=== PATIENT | male | born 1955 | race Two or more races ===

== ENCOUNTER 2019-01-24 03:01 | Emergency (ER) | payer OTHER, MEDICAID ==
[~2019-01-24] VITALS: Ht 172.7 cm; Wt 76.7 kg
[2019-01-24 03:55] LABS: Basophils # (auto) 0.1 uL; Basophils % (auto) 0.7 % (0.0-2.0); Eosinophils # (auto) 0.2 uL; Eosinophils % (auto) 2.2 % (0.0-7.0); Hematocrit 43.1 % (41.0-53.0); Hemoglobin 14.7 g/dL (13.5-17.5); Lymphocytes # (auto) 3.8 uL; Lymphocytes % (auto) 35.9 % (10.0-50.0); Mean Corpuscular Hemoglobin 32.3 pg (28.0-32.0); Mean Corpuscular Hgb Conc. 34.2 g/dL (32.0-36.0); Mean Corpuscular Volume 94.4 fL (80.0-100.0); Monocytes # (auto) 0.6 uL; Monocytes % (auto) 6.1 % (0.0-12.0); Neutrophils # (auto) 5.8 uL; Neutrophils % (auto) 55.1 % (37.0-80.0); Platelet Count (auto) 205 10^3/uL (140-450); Red Blood Cells 4.56 10^6/uL (4.5-5.90); Red Cell Distribution Width 13.8 % (11.8-14.3); White Blood Cell 10.5 10^3/uL (4.4-10.8)
[2019-01-24 04:14] LABS: Albumin 3.8 g/dL (3.4-5.0); BUN/Creatinine Ratio 20.5; Potassium 3.8 mmol/L (3.5-5.1)
[2019-01-24 04:19] LABS: Bilirubin, Total 0.5 mg/dL (0.2-1.0); Total Protein 7.6 g/dL (6.4-8.2)
[2019-01-24 09:44] VITALS: BP 150/80
== END 2019-01-24 09:48 | disposition home or self-care (01) ==
LOC: ER 03:05
DX: I10 Essential (primary) hypertension (principal); E78.5 Hyperlipidemia, unspecified; I48.91 Unspecified atrial fibrillation
CPT/HCPCS: 36415; 71046; 80053; 83735; 84443; 84484; 85025; 93005

== ENCOUNTER 2023-06-02 05:32 | Inpatient (IN) | payer OTHER, MEDICAID ==
[~2023-06-02] VITALS: Ht 162.6 cm; Wt 78.4 kg
[2023-06-02] VITALS (7 sets, daily range): BP systolic 143–168; BP diastolic 59–62; PULSE 43–55; RESP 12–18; TEMP 36.6; O2SAT 94–97
[2023-06-02] MEDS ORDERED: MORPHINE SULFATE 4 MG/ML SYR/VIAL IV ONE (06:00)
[2023-06-02] MEDS ORDERED: PANTOPRAZOLE 40 MG/10 ML VIAL INJ IV ONE ×2 (06:00→10:00)
[2023-06-02] MEDS ORDERED: ONDANSETRON HCL 4 MG/2 ML VIAL IV ONE (06:00)
[2023-06-02] MEDS ORDERED: hydrALAZINE HCL 20 MG/ML VL IV ONE (06:00)
[2023-06-02] MEDS ORDERED: IOHEXOL 350 MG/ML 100ML IJ ONE (06:04)
[2023-06-02 06:08] LABS: Basophils # (auto) 0.1 10 ^3/uL (0-0.2); Basophils % (auto) 0.6 % (0.0-2.0); Eosinophils # (auto) 0.1 10 ^3/uL (0-0.8); Eosinophils % (auto) 1.1 % (0.0-7.0); Hematocrit 35.4 % (41.0-53.0); Hemoglobin 11.7 g/dL (13.5-17.5); Lymphocytes # (auto) 4.3 10 ^3/uL (0.4-5.4); Lymphocytes % (auto) 35.3 % (10.0-50.0); Mean Corpuscular Hemoglobin 31.2 pg (28.0-32.0); Mean Corpuscular Volume 94.6 fL (80.0-100.0); Monocytes # (auto) 0.7 10 ^3/uL (0-1.3); Monocytes % (auto) 5.8 % (0.0-12.0); Neutrophils % (auto) 57.2 % (37.0-80.0); Red Blood Cells 3.74 10^6/uL (4.5-5.90); Red Cell Distribution Width 13.9 % (11.8-14.3); White Blood Cell 12.1 10^3/uL (4.4-10.8)
[2023-06-02 06:24] LABS: Alanine Aminotransferase 27 U/L (7-40); Albumin 4.2 g/dL (3.2-4.8); Alkaline Phosphatase 59 U/L (46-116); Anion Gap 7.1 (5-15); Aspartate Aminotransferase 43 U/L (13-40); BUN/Creatinine Ratio 15.6 (10.0-20.0); Blood Urea Nitrogen 20 mg/dL (9-23); Calcium 8.8 mg/dL (8.7-10.4); Carbon Dioxide 23.9 mmol/L (20-30); Chloride 108 mmol/L (98-107); Glucose 109 mg/dL (74-106); Potassium 3.7 mmol/L (3.5-5.1); Sodium 139 mmol/L (136-145)
[2023-06-02 06:25] LABS: Bilirubin, Total 0.6 mg/dL (0.2-1.0); INR 1.1 (0.9-1.15); Partial Thromboplastin Time 28.5 SEC (24.5-34.5); Prothrombin Time 11.5 sec (9.3-11.8); Total Protein 6.7 g/dL (5.7-8.2)
[2023-06-02 07:27] LABS: INR 1.13 (0.9-1.15); Prothrombin Time 11.8 sec (9.3-11.8)
[2023-06-02 08:19] LABS: COVID19 ANTIGEN SOFIA FIA NEGATIVE (NEGATIVE)
[2023-06-02] MEDS ORDERED: PIPERACILLIN-TAZO 4.5GM 100 ML IV ONE (08:30)
[2023-06-02] MEDS ORDERED: ONDANSETRON HCL 4 MG/2 ML VIAL IV PRN (09:30)
[2023-06-02] MEDS ORDERED: hydrALAZINE HCL 20 MG/ML VL IV PRN (09:30)
[2023-06-02] MEDS ORDERED: ACETAMINOPHEN 325 MG TAB PO PRN (09:30)
[2023-06-02] MEDS ORDERED: ENOXAPARIN SOD 100 MG/1 ML SYRINGE SC ONE (09:30)
[2023-06-02] MEDS ORDERED: DOCUSATE SOD 100 MG CAP PO PRN (09:30)
[2023-06-02] MEDS ORDERED: NITROGLYCERIN 0.4 MG SL TAB SL PRN (09:30)
[2023-06-02] MEDS ORDERED: MORPHINE SULFATE INJ 2 MG/ml SYRG IV PRN ×2 (09:30)
[2023-06-02] MEDS ORDERED: APIX5TAB PO (09:31)
[2023-06-02] MEDS ORDERED: ROSU10TA64 PO (09:31)
[2023-06-02] MEDS ORDERED: DRON400T PO (09:31)
[2023-06-02] MEDS ORDERED: LISINOPRIL 5 MG TAB PO SCH (10:00)
[2023-06-02 10:39] LABS: Triglycerides 116 mg/dL (< 150)
[2023-06-02 10:40] LABS: LDL Cholesterol 66 mg/dL (< 100)
[2023-06-02 10:41] LABS: Cholesterol 117 mg/dL (< 200); HDL Cholesterol 34 mg/dL (40-59)
[2023-06-02] MEDS: ASPirin 81 mg TAB PO SCH (11:29)
[2023-06-02] MEDS ORDERED: CLOPIDOGREL 300 MG TAB PO ONE (13:00)
[2023-06-02] MEDS: DRONEDARONE HCL 400 MG TAB PO SCH ×2 (13:05→22:00)
[2023-06-02] MEDS ORDERED: LOSA100T33 (13:23)
[2023-06-02] MEDS: PIPERACILLIN-TAZOB 3.375GM 100 ML IV SCH (17:59)
[2023-06-02] MEDS: ENOXAPARIN SOD 80 MG/0.8ML SYRINGE SC SCH (22:00)
[2023-06-02] MEDS: ATORVASTATIN 20 MG TAB PO SCH (22:40)
[2023-06-03] VITALS (11 sets, daily range): BP systolic 85–152; BP diastolic 47–67; PULSE 44–58; RESP 12–18; TEMP 36.8; O2SAT 96–98
[2023-06-03] MEDS: PIPERACILLIN-TAZOB 3.375GM 100 ML IV SCH ×2 (00:32→08:58)
[2023-06-03 06:03] LABS: Basophils # (auto) 0.1 10 ^3/uL (0-0.2); Basophils % (auto) 0.7 % (0.0-2.0); Eosinophils # (auto) 0.3 10 ^3/uL (0-0.8); Eosinophils % (auto) 2.9 % (0.0-7.0); Hemoglobin 11.6 g/dL (13.5-17.5); Lymphocytes # (auto) 3.3 10 ^3/uL (0.4-5.4); Lymphocytes % (auto) 32.7 % (10.0-50.0); Mean Corpuscular Hemoglobin 30.4 pg (28.0-32.0); Mean Corpuscular Hgb Conc. 32.2 g/dL (32.0-36.0); Mean Corpuscular Volume 94.6 fL (80.0-100.0); Monocytes # (auto) 0.7 10 ^3/uL (0-1.3); Monocytes % (auto) 6.5 % (0.0-12.0); Neutrophils # (auto) 5.8 10 ^3/uL (1.6-8.6); Neutrophils % (auto) 57.2 % (37.0-80.0); Red Blood Cells 3.81 10^6/uL (4.5-5.90); White Blood Cell 10.2 10^3/uL (4.4-10.8)
[2023-06-03 06:27] LABS: Alanine Aminotransferase 21 U/L (7-40); Albumin 3.9 g/dL (3.2-4.8); Alkaline Phosphatase 58 U/L (46-116); Anion Gap 8.1 (5-15); Aspartate Aminotransferase 31 U/L (13-40); BUN/Creatinine Ratio 11.4 (10.0-20.0); Bilirubin, Total 1.1 mg/dL (0.2-1.0); Blood Urea Nitrogen 14 mg/dL (9-23); Calcium 8.6 mg/dL (8.7-10.4); Carbon Dioxide 22.9 mmol/L (20-30); Chloride 108 mmol/L (98-107); Glucose 78 mg/dL (74-106); Lipase 54 U/L (12-53); Potassium 3.7 mmol/L (3.5-5.1); Sodium 139 mmol/L (136-145); Total Protein 6.2 g/dL (5.7-8.2)
[2023-06-03] MEDS: PANTOPRAZOLE 40 MG/10 ML VIAL INJ IV SCH (09:55)
[2023-06-03] MEDS: ASPirin 81 mg TAB PO SCH ×2 (09:55→16:45)
[2023-06-03] MEDS: LOSARTAN POTASSIUM 50 MG TAB PO SCH ×2 (09:56→16:46)
[2023-06-03] MEDS: ENOXAPARIN SOD 80 MG/0.8ML SYRINGE SC SCH (09:56)
[2023-06-03] MEDS: DRONEDARONE HCL 400 MG TAB PO SCH ×2 (09:56→21:46)
[2023-06-03] MEDS: CLOPIDOGREL BISULFATE 75 MG TAB PO SCH ×2 (09:56→16:46)
[2023-06-03] MEDS ORDERED: IODIXANOL 320MG/ML 100ML BTL IV ONE (10:47)
[2023-06-03] MEDS ORDERED: LIDOCAINE 2%HCL (LOCAL ANESTH.) INJ 20ML MDV ONE (10:47)
[2023-06-03] MEDS ORDERED: VERAPAMIL 2.5MG/ML INJ 2ML VIAL IV ONE (10:54)
[2023-06-03] MEDS ORDERED: ANGIOMAX 250 MG VIAL IV ONE (10:54)
[2023-06-03] MEDS ORDERED: fentaNYL CITRATE 100 MCG/2 ML VL ONE (10:55)
[2023-06-03] MEDS ORDERED: MIDAZOLAM HCL 2MG/2ML 2ml VIAL (1mg/ml) ONE (10:55)
[2023-06-03] MEDS ORDERED: HEPARIN SODIUM (PORCINE) 5000 UNITS/ML 1ML VIAL ONE (10:55)
[2023-06-03] MEDS ORDERED: SODIUM CHL 0.9% 0 ML ONE (10:55)
[2023-06-03] MEDS ORDERED: cefTRIAXone 1GM/50ML D5W 50 ML IV ONE (12:30)
[2023-06-03] MEDS ORDERED: TEMAZEPAM 15 MG CAP PO PRN (13:15)
[2023-06-03] MEDS ORDERED: NICOTINE 21MG/24 HR TOPICAL PATCH TD ONE (13:15)
[2023-06-03] MEDS: metroNIDAZOLE 500MG/100ML 100 ML IV SCH ×2 (14:00→21:35)
[2023-06-03] MEDS: ATORVASTATIN 20 MG TAB PO SCH (21:35)
[2023-06-04 05:00] VITALS: BP 146/69; PULSE 51; RESP 19; TEMP 98.1; O2SAT 98
[2023-06-04] MEDS: metroNIDAZOLE 500MG/100ML 100 ML IV SCH (05:40)
[2023-06-04 07:34] LABS: Anion Gap 8.2 (5-15); Carbon Dioxide 22.8 mmol/L (20-30); Chloride 108 mmol/L (98-107); Potassium 4.1 mmol/L (3.5-5.1); Sodium 139 mmol/L (136-145)
[2023-06-04 07:35] LABS: Calcium 8.4 mg/dL (8.5-10.1)
[2023-06-04 07:40] LABS: Blood Urea Nitrogen 17 mg/dL (9-23); Glucose 88 mg/dL (74-106)
[2023-06-04 07:43] LABS: Basophils # (auto) 0.1 10 ^3/uL (0-0.2); Basophils % (auto) 0.9 % (0.0-2.0); Eosinophils # (auto) 0.3 10 ^3/uL (0-0.8); Eosinophils % (auto) 3.5 % (0.0-7.0); Hematocrit 32.9 % (41.0-53.0); Hemoglobin 11.2 g/dL (13.5-17.5); Lymphocytes # (auto) 2.7 10 ^3/uL (0.4-5.4); Lymphocytes % (auto) 28.2 % (10.0-50.0); Mean Corpuscular Hemoglobin 31.9 pg (28.0-32.0); Mean Corpuscular Hgb Conc. 34.1 g/dL (32.0-36.0); Mean Corpuscular Volume 93.5 fL (80.0-100.0); Monocytes # (auto) 0.8 10 ^3/uL (0-1.3); Monocytes % (auto) 8.2 % (0.0-12.0); Neutrophils # (auto) 5.6 10 ^3/uL (1.6-8.6); Neutrophils % (auto) 59.2 % (37.0-80.0); Red Blood Cells 3.51 10^6/uL (4.5-5.90); Red Cell Distribution Width 13.7 % (11.8-14.3); White Blood Cell 9.5 10^3/uL (4.4-10.8)
[2023-06-04 07:44] LABS: BUN/Creatinine Ratio 15.3 (10.0-20.0)
[2023-06-04 08:00] VITALS: PULSE 43; PULSE 52; RESP 18; O2SAT 98
[2023-06-04 08:35] VITALS: BP 145/73; PULSE 47; RESP 16; TEMP 97.7; O2SAT 100
[2023-06-04] MEDS: PANTOPRAZOLE 40 MG/10 ML VIAL INJ IV SCH (08:56)
[2023-06-04] MEDS ORDERED: cefTRIAXone 1GM/50ML D5W 50 ML IV SCH (09:00)
[2023-06-04] MEDS: DRONEDARONE HCL 400 MG TAB PO SCH (09:03)
[2023-06-04] MEDS ORDERED: NICOTINE 21MG/24 HR TOPICAL PATCH TD SCH (10:00)
[2023-06-04 12:35] VITALS: BP 136/66; PULSE 54; RESP 18; TEMP 98.2; O2SAT 100
[2023-06-04] MEDS ORDERED: AMLO1TAB23 PO (14:14)
== END 2023-06-04 15:00 | disposition home or self-care (01) | DRG 280 ==
LOC: ER 05:32 → EDBD 05:32 → TELE 09:28 → TELE-EAST 17:23
PROVIDERS: ADMIT Internal Medicine
PROC: B211YZZ Fluoroscopy of Multiple Coronary Arteries using Other Contrast (ICD-10-PCS; principal; 2023-06-03)
DX: I21.4 Non-ST elevation (NSTEMI) myocardial infarction (principal); I50.31 Acute diastolic (congestive) heart failure; I16.1 Hypertensive emergency; R00.1 Bradycardia, unspecified; E78.5 Hyperlipidemia, unspecified; I48.91 Unspecified atrial fibrillation; F17.210 Nicotine dependence, cigarettes, uncomplicated; I11.0 Hypertensive heart disease with heart failure; R79.89 Other specified abnormal findings of blood chemistry; I73.9 Peripheral vascular disease, unspecified; E11.9 Type 2 diabetes mellitus without complications; I25.10 Atherosclerotic heart disease of native coronary artery without angina pectoris; Z20.822 Contact with and (suspected) exposure to COVID-19; Z82.3 Family history of stroke; Z79.82 Long term (current) use of aspirin; Z86.79 Personal history of other diseases of the circulatory system
CPT/HCPCS: 36415; 71045; 74177; 76705; 78226; 80048; 80053; 80061; 83036; 83690; 83735; 83880; 84443; 84484; 85025; 85379; 85610; 85730; 87426; 93005; 93306; 93454; 99152; 99291; C9113; G0378; J2250; J2543; J3490; Q9967

== ENCOUNTER 2023-08-13 03:14 | Inpatient (IN) | payer OTHER, MEDICAID ==
[~2023-08-13] VITALS: Ht 165.1 cm; Wt 73.3 kg
[~2023-08-13 03:14] MED LIST: AMLO1TAB23 PO; APIX5TAB PO; DRON400T PO; LOSA100T33; ROSU10TA64 PO
[2023-08-13] MEDS ORDERED: hydrALAZINE HCL 20 MG/ML VL IV ONE ×3 (03:30→06:45)
[2023-08-13 03:45] LABS: Basophils # (auto) 0.1 10 ^3/uL (0-0.2); Basophils % (auto) 0.6 % (0.0-2.0); Eosinophils # (auto) 0.4 10 ^3/uL (0-0.8); Eosinophils % (auto) 3.8 % (0.0-7.0); Hematocrit 44.6 % (41.0-53.0); Hemoglobin 14.9 g/dL (13.5-17.5); Lymphocytes # (auto) 2.7 10 ^3/uL (0.4-5.4); Lymphocytes % (auto) 29.1 % (10.0-50.0); Mean Corpuscular Hemoglobin 31.4 pg (28.0-32.0); Mean Corpuscular Hgb Conc. 33.4 g/dL (32.0-36.0); Monocytes # (auto) 0.7 10 ^3/uL (0-1.3); Neutrophils # (auto) 5.6 10 ^3/uL (1.6-8.6); Neutrophils % (auto) 59.5 % (37.0-80.0); Nucleated Red Blood Cells % 0.1 %; Red Blood Cells 4.75 10^6/uL (4.5-5.90); Red Cell Distribution Width 14.2 % (11.8-14.3); White Blood Cell 9.4 10^3/uL (4.4-10.8)
[2023-08-13 03:50] LABS: Alanine Aminotransferase 16 U/L (7-40); Albumin 4.7 g/dL (3.2-4.8); Alkaline Phosphatase 81 U/L (46-116); Anion Gap 9 (5-15); Aspartate Aminotransferase 19 U/L (13-40); BUN/Creatinine Ratio 8.4 (10.0-20.0); Bilirubin, Total 0.5 mg/dL (0.2-1.0); Blood Urea Nitrogen 9 mg/dL (9-23); Calcium 9.5 mg/dL (8.7-10.4); Carbon Dioxide 22 mmol/L (20-30); Chloride 106 mmol/L (98-107); Glucose 107 mg/dL (74-106); Magnesium 2.1 mg/dL (1.6-2.6); Potassium 4.3 mmol/L (3.5-5.1); Sodium 137 mmol/L (136-145); Total Protein 7.4 g/dL (5.7-8.2)
[2023-08-13 03:59] LABS: INR 1.04 (0.9-1.15); Partial Thromboplastin Time 30.5 SEC (24.5-34.5); Prothrombin Time 10.9 sec (9.3-11.8)
[2023-08-13 04:04] VITALS: PULSE 60; RESP 13; O2SAT 97
[2023-08-13 04:52] LABS: Urine Bacteria NONE SEEN /hpf (None Seen); Urine Blood Negative /uL (Negative); Urine Clarity Clear (Clear); Urine Color Colorless (Yellow); Urine Protein, UAD Negative (Negative); Urine Specific Gravity 1.006 (1.001-1.035); Urine Urobilinogen Normal (Negative); Urine WBC <1 /hpf (0 - 3); Urine pH 5.5 (5.0-8.0)
[2023-08-13] MEDS ORDERED: ENOXAPARIN SOD 80 MG/0.8ML SYRINGE SC ONE (06:30)
[2023-08-13] MEDS ORDERED: ASPirin 325 MG TAB PO ONE (06:30)
[2023-08-13] MEDS ORDERED: cloNIDine HCL 0.1 MG TAB PO ONE (06:45)
[2023-08-13] MEDS ORDERED: ONDANSETRON HCL 4 MG/2 ML VIAL IV PRN (07:15)
[2023-08-13] MEDS ORDERED: NITROGLYCERIN 0.4 MG SL TAB SL PRN (07:15)
[2023-08-13] MEDS ORDERED: ACETAMINOPHEN 325 MG TAB PO PRN (07:15)
[2023-08-13] MEDS ORDERED: MORPHINE SULFATE INJ 2 MG/ml SYRG IV PRN (07:15)
[2023-08-13] MEDS ORDERED: hydrALAZINE HCL 20 MG/ML VL IV PRN (07:15)
[2023-08-13 08:35] VITALS: PULSE 60; RESP 14; O2SAT 97
[2023-08-13] MEDS: dilTIAZem 120MG ER CAP PO SCH (10:00)
[2023-08-13] MEDS ORDERED: APIXABAN 5 MG TAB PO SCH (10:00)
[2023-08-13] MEDS: LOSARTAN POTASSIUM 50 MG TAB PO SCH (10:28)
[2023-08-13] MEDS: ASPirin 81 mg TAB PO SCH (10:28)
[2023-08-13 20:10] VITALS: PULSE 60; RESP 16; O2SAT 94
[2023-08-13] MEDS ORDERED: ATORVASTATIN 20 MG TAB PO SCH (22:00)
[2023-08-14 03:30] VITALS: BP 145/71; PULSE 60; PULSE 64; RESP 18; TEMP 97.7; O2SAT 96
[2023-08-14 05:00] VITALS: BP 139/53; PULSE 60; RESP 18; TEMP 98.2; O2SAT 97
[2023-08-14 06:28] LABS: Basophils # (auto) 0.1 10 ^3/uL (0-0.2); Basophils % (auto) 1.2 % (0.0-2.0); Eosinophils # (auto) 0.2 10 ^3/uL (0-0.8); Eosinophils % (auto) 2.4 % (0.0-7.0); Hematocrit 42.3 % (41.0-53.0); Hemoglobin 14.3 g/dL (13.5-17.5); Lymphocytes # (auto) 1.8 10 ^3/uL (0.4-5.4); Lymphocytes % (auto) 23.3 % (10.0-50.0); Mean Corpuscular Hemoglobin 31.4 pg (28.0-32.0); Mean Corpuscular Hgb Conc. 33.7 g/dL (32.0-36.0); Mean Corpuscular Volume 92.9 fL (80.0-100.0); Monocytes # (auto) 0.5 10 ^3/uL (0-1.3); Monocytes % (auto) 6.5 % (0.0-12.0); Neutrophils # (auto) 5.3 10 ^3/uL (1.6-8.6); Neutrophils % (auto) 66.6 % (37.0-80.0); Nucleated Red Blood Cells % 0.1 %; Red Blood Cells 4.55 10^6/uL (4.5-5.90); Red Cell Distribution Width 13.6 % (11.8-14.3); White Blood Cell 7.9 10^3/uL (4.4-10.8)
[2023-08-14 06:34] LABS: Alanine Aminotransferase 14 U/L (7-40); Albumin 4.2 g/dL (3.2-4.8); Alkaline Phosphatase 74 U/L (46-116); Anion Gap 6 (5-15); Aspartate Aminotransferase 20 U/L (13-40); BUN/Creatinine Ratio 12.8 (10.0-20.0); Bilirubin, Total 0.9 mg/dL (0.2-1.0); Blood Urea Nitrogen 14 mg/dL (9-23); Calcium 9.2 mg/dL (8.5-10.1); Carbon Dioxide 23 mmol/L (20-30); Chloride 107 mmol/L (98-107); Glucose 82 mg/dL (74-106); Potassium 4.2 mmol/L (3.5-5.1); Sodium 136 mmol/L (136-145); Total Protein 6.5 g/dL (5.7-8.2)
[2023-08-14] MEDS ORDERED: DILT60TA PO (07:37)
[2023-08-14] MEDS ORDERED: TRAZ-184 PO (07:37)
[2023-08-14 08:00] VITALS: PULSE 60; RESP 18
[2023-08-14 09:00] VITALS: BP 141/78; PULSE 60; RESP 18; TEMP 98.1; O2SAT 97
[2023-08-14] MEDS: LOSARTAN POTASSIUM 50 MG TAB PO SCH (09:01)
[2023-08-14] MEDS: ASPirin 81 mg TAB PO SCH (09:02)
[2023-08-14] MEDS ORDERED: ENOXAPARIN SOD 40 MG/0.4 ML SYRINGE SC SCH (10:00)
[2023-08-14] MEDS: dilTIAZem 120MG ER CAP PO SCH (10:00)
[2023-08-14] MEDS ORDERED: amLODIPine BESYLATE 5 MG TAB PO ONE (11:15)
[2023-08-14] MEDS ORDERED: hydroCHLOROthiazide 25 MG TAB PO ONE (11:15)
[2023-08-14 12:21] VITALS: BP 148/111; PULSE 60; RESP 18; TEMP 98.3; O2SAT 98
[2023-08-14 13:42] VITALS: BP 139/88; PULSE 60
[2023-08-14] MEDS ORDERED: MULTAQ 400 MG PO SCH (22:00)
[2023-08-14] MEDS ORDERED: traZODone HCL 50 MG TAB PO SCH (22:00)
[2023-08-14] MEDS ORDERED: APIXABAN 5 MG TAB PO SCH (22:00)
[2023-08-15] MEDS ORDERED: hydroCHLOROthiazide 25 MG TAB PO SCH (10:00)
[2023-08-15] MEDS ORDERED: amLODIPine BESYLATE 5 MG TAB PO SCH (10:00)
[2023-08-15] MEDS ORDERED: LOSARTAN POTASSIUM 50 MG TAB PO SCH (10:00)
== END 2023-08-14 15:00 | disposition home or self-care (01) | DRG 280 ==
LOC: EDUNIT# 03:14 → ER 03:14 → EDBD 03:14 → TELE 07:05 → TELE-EAST 07:11
PROVIDERS: ADMIT Nurse Practitioner; ATTEND Internal Medicine
DX: I16.1 Hypertensive emergency (principal); I21.A1 Myocardial infarction type 2; I50.31 Acute diastolic (congestive) heart failure; D68.69 Other thrombophilia; I11.0 Hypertensive heart disease with heart failure; I25.10 Atherosclerotic heart disease of native coronary artery without angina pectoris; E66.9 Obesity, unspecified; I48.91 Unspecified atrial fibrillation; E11.51 Type 2 diabetes mellitus with diabetic peripheral angiopathy without gangrene; E78.5 Hyperlipidemia, unspecified; F41.9 Anxiety disorder, unspecified; Z86.79 Personal history of other diseases of the circulatory system; Z95.0 Presence of cardiac pacemaker; Z82.3 Family history of stroke; Z68.26 Body mass index [BMI] 26.0-26.9, adult; Z72.0 Tobacco use; Z71.6 Tobacco abuse counseling
CPT/HCPCS: 36415; 71045; 80053; 81001; 83036; 83735; 83880; 84443; 84484; 85025; 85379; 85610; 85730; 93005; 93306; 96372; 96374; 96376; 99291; G0378

== ENCOUNTER 2023-09-05 10:49 | Inpatient (IN) | payer OTHER, MEDICAID ==
[~2023-09-05] VITALS: Ht 165.1 cm; Wt 73.6 kg
[~2023-09-05 10:49] MED LIST changes: +DILT60TA PO; +TRAZ-184 PO
[2023-09-05] MEDS ORDERED: dilTIAZem 25 MG/5 ML VIAL IV ONE (11:00)
[2023-09-05 11:27] VITALS: PULSE 114; RESP 17; O2SAT 100
[2023-09-05 11:27] LABS: Basophils # (auto) 0.1 10 ^3/uL (0-0.2); Basophils % (auto) 0.8 % (0.0-2.0); Eosinophils # (auto) 0.1 10 ^3/uL (0-0.8); Eosinophils % (auto) 1.3 % (0.0-7.0); Hematocrit 47.9 % (41.0-53.0); Lymphocytes # (auto) 1.6 10 ^3/uL (0.4-5.4); Lymphocytes % (auto) 17.4 % (10.0-50.0); Mean Corpuscular Hgb Conc. 33.3 g/dL (32.0-36.0); Monocytes # (auto) 0.5 10 ^3/uL (0-1.3); Monocytes % (auto) 5.9 % (0.0-12.0); Neutrophils # (auto) 6.7 10 ^3/uL (1.6-8.6); Neutrophils % (auto) 74.6 % (37.0-80.0); Red Blood Cells 5.16 10^6/uL (4.5-5.90); Red Cell Distribution Width 13.8 % (11.8-14.3); White Blood Cell 8.9 10^3/uL (4.4-10.8)
[2023-09-05 12:03] LABS: Alanine Aminotransferase 20 U/L (7-40); Albumin 4.4 g/dL (3.2-4.8); Alkaline Phosphatase 83 U/L (46-116); Anion Gap 8 (5-15); Aspartate Aminotransferase 26 U/L (13-40); BUN/Creatinine Ratio 11.2 (10.0-20.0); Bilirubin, Total 0.8 mg/dL (0.2-1.0); Blood Urea Nitrogen 13 mg/dL (9-23); Calcium 8.9 mg/dL (8.7-10.4); Carbon Dioxide 20 mmol/L (20-30); Chloride 107 mmol/L (98-107); Glucose 114 mg/dL (74-106); Potassium 4.4 mmol/L (3.5-5.1); Sodium 135 mmol/L (136-145); Total Protein 6.8 g/dL (5.7-8.2)
[2023-09-05] MEDS ORDERED: ASPirin 325 MG TAB PO ONE (14:00)
[2023-09-05] MEDS ORDERED: ASPirin 325 MG TAB ONE (14:52)
[2023-09-05] MEDS: SODIUM CHLORIDE 0.9% 1,000 ML IV SCH (15:30)
[2023-09-05] MEDS ORDERED: MORPHINE SULFATE INJ 2 MG/ml SYRG IV PRN (15:30)
[2023-09-05] MEDS ORDERED: ACETAMINOPHEN 325 MG TAB PO PRN (15:30)
[2023-09-05] MEDS ORDERED: NITROGLYCERIN 0.4 MG SL TAB SL PRN (15:30)
[2023-09-05 15:42] LABS: COVID19 ANTIGEN SOFIA FIA NEGATIVE (NEGATIVE); Rapid Influenza A Negative (Negative); Rapid Influenza B Negative (Negative)
[2023-09-05] MEDS ORDERED: dilTIAZem 120MG ER CAP PO ONE (16:15)
[2023-09-05 17:58] LABS: Triglycerides 87 mg/dL (< 150)
[2023-09-05 17:59] LABS: LDL Cholesterol 79 mg/dL (< 100)
[2023-09-05 18:00] LABS: Cholesterol 132 mg/dL (< 200); HDL Cholesterol 42 mg/dL (40-59)
[2023-09-05 19:30] VITALS: PULSE 109; RESP 16; O2SAT 98
[2023-09-05] MEDS ORDERED: traZODone HCL 50 MG TAB ONE (21:46)
[2023-09-05] MEDS ORDERED: APIXABAN 5 MG TAB ONE (21:46)
[2023-09-05] MEDS: APIXABAN 5 MG TAB PO SCH (21:47)
[2023-09-05] MEDS ORDERED: traZODone HCL 50 MG TAB PO SCH (22:00)
[2023-09-06 05:00] VITALS: BP 150/89; PULSE 91; RESP 21; TEMP 97.6; O2SAT 96
[2023-09-06 06:57] LABS: Basophils # (auto) 0.1 10 ^3/uL (0-0.2); Basophils % (auto) 1.2 % (0.0-2.0); Eosinophils # (auto) 0.3 10 ^3/uL (0-0.8); Eosinophils % (auto) 3.5 % (0.0-7.0); Hematocrit 46.8 % (41.0-53.0); Hemoglobin 15.6 g/dL (13.5-17.5); Lymphocytes # (auto) 2.3 10 ^3/uL (0.4-5.4); Mean Corpuscular Hemoglobin 30.9 pg (28.0-32.0); Mean Corpuscular Hgb Conc. 33.4 g/dL (32.0-36.0); Mean Corpuscular Volume 92.6 fL (80.0-100.0); Monocytes # (auto) 0.5 10 ^3/uL (0-1.3); Monocytes % (auto) 6.4 % (0.0-12.0); Neutrophils # (auto) 4.5 10 ^3/uL (1.6-8.6); Neutrophils % (auto) 58.9 % (37.0-80.0); Red Blood Cells 5.05 10^6/uL (4.5-5.90); Red Cell Distribution Width 13.8 % (11.8-14.3); White Blood Cell 7.6 10^3/uL (4.4-10.8)
[2023-09-06 07:23] LABS: Alanine Aminotransferase 14 U/L (7-40); Alkaline Phosphatase 78 U/L (46-116); Anion Gap 8 (5-15); BUN/Creatinine Ratio 12.1 (10.0-20.0); Blood Urea Nitrogen 13 mg/dL (9-23); Calcium 9.3 mg/dL (8.7-10.4); Carbon Dioxide 21 mmol/L (20-30); Chloride 107 mmol/L (98-107); Glucose 98 mg/dL (74-106); Potassium 4.2 mmol/L (3.5-5.1); Sodium 136 mmol/L (136-145)
[2023-09-06 07:24] LABS: Albumin 4.2 g/dL (3.2-4.8); Aspartate Aminotransferase 23 U/L (13-40); Bilirubin, Total 0.8 mg/dL (0.2-1.0); Total Protein 6.9 g/dL (5.7-8.2)
[2023-09-06 07:42] VITALS: PULSE 89; RESP 16; O2SAT 96
[2023-09-06 08:00] VITALS: PULSE 89
[2023-09-06] MEDS: APIXABAN 5 MG TAB PO SCH (09:03)
[2023-09-06] MEDS: SODIUM CHLORIDE 0.9% 1,000 ML IV SCH (09:04)
[2023-09-06 09:22] VITALS: BP 139/82; PULSE 89; RESP 16; TEMP 98; O2SAT 96
[2023-09-06] MEDS ORDERED: LOSARTAN POTASSIUM 50 MG TAB PO SCH (10:00)
[2023-09-06] MEDS ORDERED: dilTIAZem 120MG ER CAP PO SCH (10:00)
[2023-09-06] MEDS ORDERED: ASPirin 81 mg TAB PO SCH (10:00)
[2023-09-06 10:09] LABS: INR 1.08 (0.9-1.15); Partial Thromboplastin Time 31.2 SEC (24.5-34.5); Prothrombin Time 11.3 sec (9.3-11.8)
[2023-09-06 12:14] VITALS: BP 145/78; PULSE 74; RESP 16; TEMP 98.7; O2SAT 99
[2023-09-06] MEDS ORDERED: ATORVASTATIN 20 MG TAB PO SCH (22:00)
[2023-09-07] MEDS ORDERED: hydroCHLOROthiazide 25 MG TAB ONE (10:59)
== END 2023-09-06 15:00 | disposition home or self-care (01) | DRG 281 ==
LOC: EDBD 10:49 → ER 10:49 → TELE 15:25 → EDUNIT# 15:25 → TELE-CENTR 22:28
PROVIDERS: ADMIT Internal Medicine; ATTEND Internal Medicine
DX: I48.0 Paroxysmal atrial fibrillation (principal); I21.A1 Myocardial infarction type 2; D68.69 Other thrombophilia; I10 Essential (primary) hypertension; I45.9 Conduction disorder, unspecified; Z20.822 Contact with and (suspected) exposure to COVID-19; I73.9 Peripheral vascular disease, unspecified; Z79.01 Long term (current) use of anticoagulants; Z95.0 Presence of cardiac pacemaker
CPT/HCPCS: 36415; 71045; 80053; 80061; 82306; 82607; 83605; 83735; 83880; 84443; 84484; 85025; 85610; 85730; 87426; 87804; 93005; 93306; 99291; G0378

== ENCOUNTER 2023-09-06 23:19 | Inpatient (IN) | payer OTHER, MEDICAID ==
[~2023-09-06] VITALS: Ht 165.1 cm; Wt 74.0 kg
[2023-09-06 23:52] LABS: Basophils # (auto) 0.1 10 ^3/uL (0-0.2); Eosinophils # (auto) 0.2 10 ^3/uL (0-0.8); Eosinophils % (auto) 2.4 % (0.0-7.0); Hematocrit 46.7 % (41.0-53.0); Hemoglobin 15.7 g/dL (13.5-17.5); Lymphocytes # (auto) 2.9 10 ^3/uL (0.4-5.4); Mean Corpuscular Hgb Conc. 33.6 g/dL (32.0-36.0); Mean Corpuscular Volume 92.3 fL (80.0-100.0); Monocytes # (auto) 0.6 10 ^3/uL (0-1.3); Monocytes % (auto) 6.9 % (0.0-12.0); Neutrophils # (auto) 5.4 10 ^3/uL (1.6-8.6); Neutrophils % (auto) 58.7 % (37.0-80.0); Red Blood Cells 5.06 10^6/uL (4.5-5.90); Red Cell Distribution Width 13.3 % (11.8-14.3); White Blood Cell 9.2 10^3/uL (4.4-10.8)
[2023-09-07 00:05] LABS: INR 1.04 (0.9-1.15); Partial Thromboplastin Time 26.5 SEC (24.5-34.5); Prothrombin Time 10.9 sec (9.3-11.8)
[2023-09-07 00:08] LABS: Alanine Aminotransferase 16 U/L (7-40); Albumin 4.5 g/dL (3.2-4.8); Alkaline Phosphatase 84 U/L (46-116); Anion Gap 6 (5-15); Aspartate Aminotransferase 25 U/L (13-40); BUN/Creatinine Ratio 9.8 (10.0-20.0); Bilirubin, Total 0.6 mg/dL (0.2-1.0); Blood Urea Nitrogen 12 mg/dL (9-23); Calcium 9.4 mg/dL (8.7-10.4); Carbon Dioxide 23 mmol/L (20-30); Chloride 107 mmol/L (98-107); Glucose 118 mg/dL (74-106); Potassium 4.1 mmol/L (3.5-5.1); Sodium 136 mmol/L (136-145); Total Protein 7.3 g/dL (5.7-8.2)
[2023-09-07] MEDS ORDERED: ONDANSETRON HCL 4 MG/2 ML VIAL IV ONE (00:45)
[2023-09-07] MEDS ORDERED: MORPHINE SULFATE 4 MG/ML SYR/VIAL IV ONE (00:45)
[2023-09-07] MEDS ORDERED: MORPHINE SULFATE 4 MG/ML SYR/VIAL ONE (00:53)
[2023-09-07] MEDS ORDERED: ONDANSETRON HCL 4 MG/2 ML VIAL ONE (00:53)
[2023-09-07] MEDS ORDERED: dilTIAZem 25 MG/5 ML VIAL IV ONE ×4 (01:11→03:21)
[2023-09-07] MEDS ORDERED: LACTATED RINGER'S 1,000 ML IV ONE (01:15)
[2023-09-07 01:35] VITALS: PULSE 93; RESP 11; O2SAT 92
[2023-09-07 02:39] LABS: Urine Bacteria FEW /hpf (None Seen); Urine Blood Negative /uL (Negative); Urine Clarity Clear (Clear); Urine Protein, UAD Negative (Negative); Urine Specific Gravity 1.008 (1.001-1.035); Urine Urobilinogen Normal (Negative); Urine WBC 1 /hpf (0 - 3); Urine pH 5.5 (5.0-8.0)
[2023-09-07 02:40] LABS: Urine Color Straw (Yellow)
[2023-09-07 02:56] VITALS: PULSE 73; RESP 14; O2SAT 97
[2023-09-07] MEDS ORDERED: dilTIAZem HCL 50 MG/10 ML VIAL IV ONE (03:18)
[2023-09-07] MEDS ORDERED: ENOXAPARIN SOD 80 MG/0.8ML SYRINGE SC ONE ×2 (04:00→04:15)
[2023-09-07] MEDS ORDERED: ASPirin 81 mg TAB PO ONE (04:00)
[2023-09-07] MEDS ORDERED: ASPirin-EC 81 mg tab PO ONE (04:14)
[2023-09-07] MEDS ORDERED: dilTIAZem HCL 180MG ER CAP PO ONE (05:15)
[2023-09-07] MEDS ORDERED: METOPROLOL TARTRATE 1MG/1ML-5ML VIAL IV ONE ×3 (05:45→06:30)
[2023-09-07] MEDS ORDERED: HYDROcodone-ACET 5/325MG TAB PO PRN (06:15)
[2023-09-07] MEDS ORDERED: DOCUSATE SOD 100 MG CAP PO PRN (06:15)
[2023-09-07] MEDS ORDERED: MORPHINE SULFATE INJ 2 MG/ml SYRG IV PRN (06:15)
[2023-09-07] MEDS ORDERED: ACETAMINOPHEN 325 MG TAB PO PRN (06:15)
[2023-09-07] MEDS ORDERED: ONDANSETRON HCL 4 MG/2 ML VIAL IV PRN (06:15)
[2023-09-07] MEDS ORDERED: HYDROmorphone HCL 2 MG/ML VL/or syr IV PRN (06:15)
[2023-09-07] MEDS ORDERED: NITROGLYCERIN 0.4 MG SL TAB SL PRN (06:15)
[2023-09-07] MEDS ORDERED: ATORVASTATIN 20 MG TAB PO ONE (06:30)
[2023-09-07] MEDS ORDERED: ATORVASTATIN 20 MG TAB ONE (07:13)
[2023-09-07 09:02] VITALS: BP 136/78; PULSE 60; RESP 18; TEMP 97.9; O2SAT 95
[2023-09-07 09:51] VITALS: BP 136/78; PULSE 60; RESP 18; TEMP 97.9; O2SAT 95
[2023-09-07] MEDS ORDERED: APIXABAN 5 MG TAB PO SCH (10:00)
[2023-09-07] MEDS ORDERED: LOSARTAN POTASSIUM 50 MG TAB PO SCH (10:00)
[2023-09-07] MEDS ORDERED: amLODIPine BESYLATE 5 MG TAB PO SCH (10:00)
[2023-09-07] MEDS ORDERED: DRONEDARONE HCL 400 MG TAB PO SCH (10:00)
[2023-09-07] MEDS ORDERED: hydroCHLOROthiazide 25 MG TAB PO SCH (10:00)
[2023-09-07] MEDS ORDERED: LOSARTAN POTASSIUM 50 MG TAB ONE (10:18)
[2023-09-07] MEDS ORDERED: APIXABAN 5 MG TAB ONE (10:18)
[2023-09-07] MEDS ORDERED: hydrALAZINE HCL 25 MG TAB ONE (10:19)
[2023-09-07 11:37] VITALS: BP 136/78; PULSE 60; RESP 18; TEMP 36.6; O2SAT 95
[2023-09-07 13:00] VITALS: BP 127/89; PULSE 92; RESP 20; TEMP 98.6; O2SAT 97
[2023-09-07] MEDS ORDERED: dilTIAZem HCL 60 MG TAB PO SCH (14:00)
[2023-09-07] MEDS ORDERED: SODIUM CHLOR 0.9% PF (SALINE LOCK) 10ML VIAL/SYR IV SCH (14:00)
== END 2023-09-07 14:40 | disposition home or self-care (01) | DRG 281 ==
LOC: ER 23:19 → EDBD 23:19 → TELE 09-07 06:12 → TELE-CENTR 09-07 08:47
PROVIDERS: ADMIT Internal Medicine; ATTEND Internal Medicine
DX: I21.4 Non-ST elevation (NSTEMI) myocardial infarction (principal); I48.20 Chronic atrial fibrillation, unspecified; I11.0 Hypertensive heart disease with heart failure; I50.9 Heart failure, unspecified; Z86.73 Personal history of transient ischemic attack (TIA), and cerebral infarction without residual deficits
CPT/HCPCS: 36415; 80053; 81001; 83735; 83880; 84443; 84484; 85025; 85610; 85730; 87081; 93005; 96361; 96372; 96374; 96375; 96376; 99291; G0378; J2405

== ENCOUNTER 2023-10-25 10:41 | Inpatient (IN) | payer MEDICARE, MEDICAID ==
[~2023-10-25] VITALS: Ht 167.6 cm; Wt 72.9 kg
[2023-10-25] MEDS ORDERED: METOPROLOL TARTRATE 1MG/1ML-5ML VIAL IV STA (10:49)
[2023-10-25 11:00] VITALS: PULSE 77; RESP 12; O2SAT 99
[2023-10-25 11:23] LABS: Basophils # (auto) 0.1 10 ^3/uL (0-0.2); Basophils % (auto) 0.6 % (0.0-2.0); Eosinophils # (auto) 0.2 10 ^3/uL (0-0.8); Eosinophils % (auto) 1.8 % (0.0-7.0); Hematocrit 45.4 % (41.0-53.0); Hemoglobin 15.2 g/dL (13.5-17.5); Lymphocytes # (auto) 2.2 10 ^3/uL (0.4-5.4); Lymphocytes % (auto) 22.9 % (10.0-50.0); Mean Corpuscular Hemoglobin 30.8 pg (28.0-32.0); Mean Corpuscular Hgb Conc. 33.5 g/dL (32.0-36.0); Monocytes # (auto) 0.4 10 ^3/uL (0-1.3); Monocytes % (auto) 4.1 % (0.0-12.0); Neutrophils # (auto) 6.7 10 ^3/uL (1.6-8.6); Neutrophils % (auto) 70.6 % (37.0-80.0); Red Blood Cells 4.94 10^6/uL (4.5-5.90); Red Cell Distribution Width 14.2 % (11.8-14.3); White Blood Cell 9.5 10^3/uL (4.4-10.8)
[2023-10-25 11:40] LABS: Alanine Aminotransferase 25 U/L (7-40); Albumin 4.8 g/dL (3.2-4.8); Alkaline Phosphatase 89 U/L (46-116); Anion Gap 10 (5-15); Aspartate Aminotransferase 22 U/L (13-40); Bilirubin, Total 0.7 mg/dL (0.2-1.0); Blood Urea Nitrogen 25 mg/dL (9-23); Calcium 9.4 mg/dL (8.7-10.4); Carbon Dioxide 21 mmol/L (20-30); Chloride 105 mmol/L (98-107); Glucose 127 mg/dL (74-106); Magnesium 1.8 mg/dL (1.6-2.6); Potassium 4.1 mmol/L (3.5-5.1); Sodium 136 mmol/L (136-145); Total Protein 7.4 g/dL (5.7-8.2)
[2023-10-25 11:52] LABS: INR 1.05 (0.9-1.15); Partial Thromboplastin Time 31.5 SEC (24.5-34.5)
[2023-10-25] MEDS ORDERED: DOCUSATE SOD 100 MG CAP PO PRN (13:15)
[2023-10-25] MEDS ORDERED: ONDANSETRON HCL 4 MG/2 ML VIAL IV PRN (13:15)
[2023-10-25] MEDS ORDERED: MORPHINE SULFATE INJ 2 MG/ml SYRG IV PRN (13:15)
[2023-10-25] MEDS ORDERED: dilTIAZem HCL 60 MG TAB PO SCH (14:00)
[2023-10-25 14:07] LABS: Phosphorus 3.2 mg/dL (2.4-5.1)
[2023-10-25 14:26] LABS: Creatinine, Urine 21.5 mg/dL (30.0-125.0)
[2023-10-25 18:14] VITALS: O2SAT 96
[2023-10-25] MEDS ORDERED: hydrALAZINE HCL 20 MG/ML VL IV PRN (18:30)
[2023-10-25 20:00] VITALS: PULSE 73; PULSE 75; RESP 17; O2SAT 96
[2023-10-25 22:00] VITALS: BP 113/68; PULSE 72; RESP 16; TEMP 97.9; O2SAT 97
[2023-10-25] MEDS ORDERED: [UNRECOGNIZED DRUG - OTHER] PO SCH (22:00)
[2023-10-25] MEDS ORDERED: traZODone HCL 50 MG TAB PO SCH (22:00)
[2023-10-25] MEDS ORDERED: ATORVASTATIN 20 MG TAB PO SCH ×2 (22:00)
[2023-10-25] MEDS: AMIODARONE HCL 200 MG TAB PO SCH (22:00)
[2023-10-25] MEDS: APIXABAN 5 MG TAB PO SCH (22:11)
[2023-10-26 05:00] VITALS: BP 147/81; PULSE 75; RESP 16; TEMP 97.7; O2SAT 97
[2023-10-26 06:27] LABS: Basophils # (auto) 0.1 10 ^3/uL (0-0.2); Basophils % (auto) 0.8 % (0.0-2.0); Eosinophils # (auto) 0.2 10 ^3/uL (0-0.8); Eosinophils % (auto) 1.9 % (0.0-7.0); Hematocrit 43.5 % (41.0-53.0); Hemoglobin 14.5 g/dL (13.5-17.5); Lymphocytes # (auto) 2.4 10 ^3/uL (0.4-5.4); Lymphocytes % (auto) 23.8 % (10.0-50.0); Mean Corpuscular Hemoglobin 30.4 pg (28.0-32.0); Mean Corpuscular Hgb Conc. 33.3 g/dL (32.0-36.0); Mean Corpuscular Volume 91.4 fL (80.0-100.0); Monocytes # (auto) 0.5 10 ^3/uL (0-1.3); Monocytes % (auto) 5.2 % (0.0-12.0); Neutrophils % (auto) 68.3 % (37.0-80.0); Nucleated Red Blood Cells % 0.1 %; Red Blood Cells 4.76 10^6/uL (4.5-5.90); Red Cell Distribution Width 14.5 % (11.8-14.3); White Blood Cell 10.2 10^3/uL (4.4-10.8)
[2023-10-26 06:39] LABS: Alanine Aminotransferase 18 U/L (7-40); Albumin 4.2 g/dL (3.2-4.8); Alkaline Phosphatase 76 U/L (46-116); Anion Gap 6 (5-15); Aspartate Aminotransferase 19 U/L (13-40); Blood Urea Nitrogen 19 mg/dL (9-23); Calcium 9.4 mg/dL (8.7-10.4); Carbon Dioxide 21 mmol/L (20-30); Chloride 109 mmol/L (98-107); Glucose 97 mg/dL (74-106); Sodium 136 mmol/L (136-145)
[2023-10-26 06:40] LABS: Bilirubin, Total 0.7 mg/dL (0.2-1.0); Total Protein 6.8 g/dL (5.7-8.2)
[2023-10-26 08:00] VITALS: PULSE 77; PULSE 79; RESP 20; O2SAT 96
[2023-10-26 09:00] VITALS: BP 127/79; PULSE 79; RESP 20; TEMP 98; O2SAT 93
[2023-10-26] MEDS ORDERED: PATIENTS OWN MEDICATION (Amlodipine Besylate 10 MG) PO SCH (10:00)
[2023-10-26] MEDS ORDERED: dilTIAZem 120MG ER CAP PO SCH ×2 (10:00)
[2023-10-26] MEDS ORDERED: LOSARTAN POTASSIUM 50 MG TAB PO SCH (10:00)
[2023-10-26] MEDS ORDERED: hydroCHLOROthiazide 25 MG TAB PO SCH (10:00)
[2023-10-26] MEDS ORDERED: amLODIPine BESYLATE 5 MG TAB PO SCH (10:00)
[2023-10-26] MEDS: AMIODARONE HCL 200 MG TAB PO SCH (10:25)
[2023-10-26] MEDS: APIXABAN 5 MG TAB PO SCH (10:27)
[2023-10-26] MEDS ORDERED: DILT240C59 PO (11:47)
[2023-10-26 12:21] VITALS: BP 135/77; PULSE 77; RESP 18; TEMP 98; O2SAT 96
[2023-10-26 13:00] VITALS: BP 135/77; PULSE 77; RESP 18; TEMP 98; O2SAT 96
== END 2023-10-26 13:08 | disposition home or self-care (01) | DRG 281 ==
LOC: ER 10:41 → EDBD 10:41 → EDUNIT# 10:41 → TELE 13:27 → TELE-EAST 13:27
PROVIDERS: ADMIT Nurse Practitioner Family; ATTEND Nurse Practitioner Family
DX: I48.0 Paroxysmal atrial fibrillation (principal); I21.A1 Myocardial infarction type 2; I50.22 Chronic systolic (congestive) heart failure; N17.9 Acute kidney failure, unspecified; I47.10 Supraventricular tachycardia, unspecified; F17.200 Nicotine dependence, unspecified, uncomplicated; F51.04 Psychophysiologic insomnia; E78.5 Hyperlipidemia, unspecified; I11.0 Hypertensive heart disease with heart failure; I49.5 Sick sinus syndrome; I73.9 Peripheral vascular disease, unspecified; I25.10 Atherosclerotic heart disease of native coronary artery without angina pectoris; Z79.01 Long term (current) use of anticoagulants; Z79.899 Other long term (current) drug therapy; Z95.0 Presence of cardiac pacemaker; Z82.3 Family history of stroke; Z82.49 Family history of ischemic heart disease and other diseases of the circulatory system
CPT/HCPCS: 36415; 71045; 80053; 82570; 83735; 83880; 84100; 84300; 84443; 84484; 85025; 85610; 85730; 93005; 93925; 96374; G0378

== ENCOUNTER 2023-10-27 11:08 | Emergency (ER) | payer MEDICARE, MEDICAID ==
[~2023-10-27] VITALS: Ht 165.1 cm; Wt 73.0 kg
[~2023-10-27 11:08] MED LIST changes: +DILT240C59 PO; -DRON400T PO
[2023-10-27 11:58] LABS: Basophils # (auto) 0 10 ^3/uL (0-0.2); Basophils % (auto) 0.6 % (0.0-2.0); Eosinophils # (auto) 0.1 10 ^3/uL (0-0.8); Eosinophils % (auto) 0.9 % (0.0-7.0); Hematocrit 45.7 % (41.0-53.0); Hemoglobin 15.3 g/dL (13.5-17.5); Lymphocytes # (auto) 1.4 10 ^3/uL (0.4-5.4); Lymphocytes % (auto) 16.6 % (10.0-50.0); Mean Corpuscular Hemoglobin 30.6 pg (28.0-32.0); Mean Corpuscular Hgb Conc. 33.4 g/dL (32.0-36.0); Mean Corpuscular Volume 91.4 fL (80.0-100.0); Monocytes # (auto) 0.3 10 ^3/uL (0-1.3); Monocytes % (auto) 3.3 % (0.0-12.0); Neutrophils # (auto) 6.6 10 ^3/uL (1.6-8.6); Neutrophils % (auto) 78.6 % (37.0-80.0); Red Blood Cells 4.99 10^6/uL (4.5-5.90); Red Cell Distribution Width 14.4 % (11.8-14.3); White Blood Cell 8.4 10^3/uL (4.4-10.8)
[2023-10-27 12:19] LABS: INR 1.07 (0.9-1.15); Prothrombin Time 11.2 sec (9.3-11.8)
[2023-10-27 12:25] LABS: Alanine Aminotransferase 24 U/L (7-40); Albumin 4.9 g/dL (3.2-4.8); Alkaline Phosphatase 89 U/L (46-116); Anion Gap 7 (5-15); Aspartate Aminotransferase 26 U/L (13-40); BUN/Creatinine Ratio 22.4 (10.0-20.0); Calcium 10.2 mg/dL (8.5-10.1); Carbon Dioxide 23 mmol/L (20-30); Chloride 104 mmol/L (98-107); Glucose 121 mg/dL (74-106); Potassium 4.3 mmol/L (3.5-5.1); Sodium 134 mmol/L (136-145)
[2023-10-27 12:26] LABS: Bilirubin, Total 0.8 mg/dL (0.2-1.0); Total Protein 7.4 g/dL (5.7-8.2)
[2023-10-27 12:27] LABS: Blood Urea Nitrogen 30 mg/dL (9-23)
[2023-10-27 12:32] LABS: Amphetamine Screen, Urine Neg (NEGATIVE); Barbiturate Scree,Urine Neg (NEGATIVE); Benzodiazephine Screen, Urine Neg (NEGATIVE); Cannabinoid Screen, Urine Neg (NEGATIVE); Cocaine Screen, Urine Neg (NEGATIVE); Opiate Scree,Urine Neg (NEGATIVE); Phencyclidine Screen, Urine Neg (NEGATIVE)
[2023-10-27 12:49] LABS: Urine Bacteria NONE SEEN /hpf (None Seen); Urine Blood Negative /uL (Negative); Urine Clarity Clear (Clear); Urine Protein, UAD Negative (Negative); Urine Specific Gravity 1.008 (1.001-1.035); Urine Urobilinogen Normal (Negative); Urine WBC <1 /hpf (0 - 3); Urine pH 5.5 (5.0-8.0)
[2023-10-27 12:50] LABS: Urine Color STRAW (Yellow)
[2023-10-27 13:04] VITALS: PULSE 80; RESP 12; O2SAT 96
[2023-10-27] MEDS ORDERED: ASPirin 325 MG TAB PO ONE (13:30)
[2023-10-27] MEDS ORDERED: IOHEXOL 350 MG/ML 100ML IJ ONE ×2 (14:51→17:40)
[2023-10-27 19:30] VITALS: PULSE 78; RESP 13; O2SAT 95
[2023-10-27 21:26] VITALS: BP 124/80; PULSE 78; RESP 17; TEMP 98.6; O2SAT 95
[2023-10-27 22:37] LABS: COVID19 ANTIGEN SOFIA FIA NEGATIVE (NEGATIVE)
== END 2023-10-27 21:36 | disposition short-term general hospital (02) ==
LOC: ER 11:08 → EDBD 11:08 → ER 21:36
DX: R00.2 Palpitations (principal); T82.119A Breakdown (mechanical) of unspecified cardiac electronic device, initial encounter; I10 Essential (primary) hypertension; I48.91 Unspecified atrial fibrillation; Z95.0 Presence of cardiac pacemaker; Z79.899 Other long term (current) drug therapy; Z20.822 Contact with and (suspected) exposure to COVID-19
CPT/HCPCS: 36415; 71045; 71275; 80053; 80307; 81001; 83690; 83880; 84484; 85025; 85379; 85610; 85730; 87426; 93005; 99285; Q9967